=== PATIENT | male | born 1990 | race Caucasian/White ===

== ENCOUNTER 2023-05-18 13:31 | Inpatient (IN) | payer BC ==
[~2023-05-18] VITALS: Ht 172.7 cm; Wt 97.5 kg
[2023-05-18] MEDS ORDERED: METH-1164 PO (13:43)
[2023-05-18] MEDS ORDERED: OXYC-517 PO ×2 (13:43)
[2023-05-18] MEDS ORDERED: KETO60IN IM (13:43)
[2023-05-18] MEDS ORDERED: ACET-683 PO (13:43)
[2023-05-18] MEDS ORDERED: GABA-1171 PO (13:43)
[2023-05-18] MEDS ORDERED: ONDANSETRON 4MG 2ML VIAL IV ONE (14:05)
[2023-05-18] MEDS: MORPHINE 4 MG/ML 1ML VIAL IV PRN ×2 (14:35→18:10)
[2023-05-18] MEDS: NS 1,000 ML IV SCH ×2 (14:37→23:40)
[2023-05-18 14:43] LABS: BASO % 0.3 % (0.0-1.0); EOS # 0.1 10^3/uL (0.0-0.5); EOS % 0.7 % (0.0-3.0); HEMATOCRIT 39.1 % (42.0-52.0); HEMOGLOBIN 13.2 g/dl (13.5-17.5); LYMPH # 1.8 10^3/uL (1.5-5.0); LYMPH % 16.3 % (24.0-44.0); MEAN CORPUSCULAR HEMOGLOBIN 29.7 pg (27.0-33.0); MEAN CORPUSCULAR HGB CONC 33.8 g/dl (32.0-36.5); MEAN CORPUSCULAR VOLUME 87.9 fl (80.0-96.0); MONO # 0.7 10^3/uL (0.0-0.8); MONO % 6.4 % (2.0-8.0); NEUTROPHILS # 8.3 10^3/uL (1.5-8.5); NEUTROPHILS % 75.7 % (36.0-66.0); PLATELET COUNT, AUTOMATED 484 10^3/uL (150-450); RED BLOOD COUNT 4.45 10^6/uL (4.30-6.10)
[2023-05-18 14:55] LABS: INR 1.1; PROTHROMBIN TIME 13.9 SECONDS (12.5-14.5)
[2023-05-18 15:12] LABS: LIPASE 34 U/L (12-53)
[2023-05-18 15:15] LABS: ALBUMIN 3.7 G/DL (3.2-5.2); ALKALINE PHOSPHATASE 56 U/L (46-116); ALT/SGPT 40 U/L (7.0-40); AST/SGOT 10 U/L (<34); BILIRUBIN,DIRECT 0.2 MG/DL (<0.4); BILIRUBIN,TOTAL 0.6 MG/DL (0.3-1.2); BLOOD UREA NITROGEN 16 MG/DL (9-23); CARBON DIOXIDE LEVEL 26 MMOL/L (20-31); CHLORIDE LEVEL 101 MMOL/L (98-107); GLOMERULAR FILTRATION RATE > 60.0 (>60); GLUCOSE, FASTING 120 MG/DL (60-100); POTASSIUM SERUM 4.5 MMOL/L (3.5-5.1); SODIUM LEVEL 134 MMOL/L (136-145); TOTAL PROTEIN 7.7 G/DL (5.7-8.2)
[2023-05-18 15:16] LABS: RSV AMPLIFICATION NEGATIVE (NEGATIVE)
[2023-05-18] MEDS ORDERED: HOME MED LIST COMPLETE! XX SCH (16:35)
[2023-05-18] MEDS ORDERED: ONDANSETRON 4MG 2ML VIAL IV PRN (18:00)
[2023-05-18] MEDS: GABAPENTIN 100 MG CAP PO SCH (21:22)
[2023-05-18] MEDS: SENOKOT S TAB PO SCH (21:22)
[2023-05-18] MEDS: methocarbamoL 500 MG TAB PO SCH (21:22)
[2023-05-18] MEDS: oxyCODONE 5MG TAB PO PRN (23:37)
[2023-05-18] MEDS: KETOROLAC 30 MG/ML 1ML VIAL IV PRN (23:38)
[2023-05-19 06:27] LABS: HEMATOCRIT 35.9 % (42.0-52.0); HEMOGLOBIN 11.9 g/dl (13.5-17.5); MEAN CORPUSCULAR HGB CONC 33.1 g/dl (32.0-36.5); MEAN CORPUSCULAR VOLUME 90.4 fl (80.0-96.0); RED BLOOD COUNT 3.97 10^6/uL (4.30-6.10); WHITE BLOOD COUNT 8.1 10^3/uL (4.0-10.0)
[2023-05-19 06:32] LABS: PLATELET COUNT, AUTOMATED 377 10^3/uL (150-450)
[2023-05-19] MEDS: SENOKOT S TAB PO SCH ×2 (08:23→21:00)
[2023-05-19] MEDS: methocarbamoL 500 MG TAB PO SCH ×4 (08:23→21:14)
[2023-05-19] MEDS: PANTOPRAZOLE 40MG TAB (PROTONIX) PO SCH (08:23)
[2023-05-19] MEDS: GABAPENTIN 100 MG CAP PO SCH ×3 (08:23→21:14)
[2023-05-19] MEDS: NS 1,000 ML IV SCH (08:24)
[2023-05-19] MEDS: oxyCODONE 5MG TAB PO PRN (11:36)
[2023-05-19 15:30] VITALS: BP 126/81; TEMP 98.9; O2SAT 99
[2023-05-19] MEDS: KETOROLAC 30 MG/ML 1ML VIAL IV PRN (15:33)
[2023-05-19 20:00] VITALS: BP 124/68; TEMP 98.6; O2SAT 96
[2023-05-19 23:56] VITALS: BP 108/67; TEMP 98.7; O2SAT 96
[2023-05-20 03:30] VITALS: BP 112/68; TEMP 98.5; O2SAT 95
[2023-05-20] MEDS: KETOROLAC 30 MG/ML 1ML VIAL IV PRN (06:13)
[2023-05-20 07:07] LABS: HEMATOCRIT 35.5 % (42.0-52.0); HEMOGLOBIN 12.2 g/dl (13.5-17.5); MEAN CORPUSCULAR HEMOGLOBIN 30.6 pg (27.0-33.0); MEAN CORPUSCULAR HGB CONC 34.4 g/dl (32.0-36.5); PLATELET COUNT, AUTOMATED 382 10^3/uL (150-450); RED BLOOD COUNT 3.99 10^6/uL (4.30-6.10); WHITE BLOOD COUNT 10.4 10^3/uL (4.0-10.0)
[2023-05-20 08:13] VITALS: BP 137/74; TEMP 98.2; O2SAT 96
[2023-05-20] MEDS: SENOKOT S TAB PO SCH (09:00)
[2023-05-20] MEDS: methocarbamoL 500 MG TAB PO SCH (09:22)
[2023-05-20] MEDS: GABAPENTIN 100 MG CAP PO SCH (09:22)
[2023-05-20] MEDS: PANTOPRAZOLE 40MG TAB (PROTONIX) PO SCH (09:22)
[2023-05-20] MEDS: oxyCODONE 5MG TAB PO PRN (10:41)
== END 2023-05-20 11:57 | disposition home or self-care (01) | DRG 663 ==
LOC: M ED 13:31 → EDBEDREQ 16:02 → M ED INP 17:57 → ENRESERV 05-19 14:53 → M PCU 05-19 15:22
PROVIDERS: ADMIT Surgery; ATTEND Surgery
DX: S36.039A Unspecified laceration of spleen, initial encounter (principal); Z88.0 Allergy status to penicillin; Z20.822 Contact with and (suspected) exposure to COVID-19; S22.42XD Multiple fractures of ribs, left side, subsequent encounter for fracture with routine healing; S36.899D Unspecified injury of other intra-abdominal organs, subsequent encounter; Z79.899 Other long term (current) drug therapy; X58.XXXA Exposure to other specified factors, initial encounter; Y92.9 Unspecified place or not applicable

== ENCOUNTER → 2023-05-18 | Outpatient (CLI) | payer BC ==
[~2023-05-18] MED LIST: ACET-683 PO; GABA-1171 PO; GASTROGRAFIN SOLUTION 30ML As Ordered ONE; ISOVUE-370 76% 100ML VIAL As Ordered ONE; KETO60IN IM; METH-1164 PO; OXYC-517 PO
== END ==
LOC: M RAD 11:01
PROVIDERS: ATTEND Physician Assistant
DX: S22.42XA Multiple fractures of ribs, left side, initial encounter for closed fracture (principal); S36.032A Major laceration of spleen, initial encounter; K66.1 Hemoperitoneum; Y93.9 Activity, unspecified; Y92.9 Unspecified place or not applicable
CPT/HCPCS: 71046; 74177; Q9963; Q9967

== ENCOUNTER → 2023-05-23 | Outpatient (REF) | payer BC ==
[~2023-05-23] MED LIST changes: -GASTROGRAFIN SOLUTION 30ML As Ordered ONE; -ISOVUE-370 76% 100ML VIAL As Ordered ONE
[2023-05-23 14:40] LABS: BASO # 0.1 10^3/uL (0.0-0.2); BASO % 0.5 % (0.0-1.0); EOS # 0.2 10^3/uL (0.0-0.5); EOS % 2.3 % (0.0-3.0); HEMATOCRIT 36.8 % (42.0-52.0); LYMPH # 1.4 10^3/uL (1.5-5.0); MEAN CORPUSCULAR HEMOGLOBIN 29.9 pg (27.0-33.0); MEAN CORPUSCULAR HGB CONC 32.6 g/dl (32.0-36.5); MEAN CORPUSCULAR VOLUME 91.8 fl (80.0-96.0); MONO # 0.7 10^3/uL (0.0-0.8); MONO % 7.3 % (2.0-8.0); NEUTROPHILS # 7.1 10^3/uL (1.5-8.5); NEUTROPHILS % 74.4 % (36.0-66.0); PLATELET COUNT, AUTOMATED 440 10^3/uL (150-450); RED BLOOD COUNT 4.01 10^6/uL (4.30-6.10); WHITE BLOOD COUNT 9.5 10^3/uL (4.0-10.0)
[2023-05-23 14:43] LABS: ALBUMIN 3.4 G/DL (3.2-5.2); ALKALINE PHOSPHATASE 60 U/L (46-116); ALT/SGPT 54 U/L (7.0-40); AST/SGOT 27 U/L (<34); BILIRUBIN,TOTAL 0.6 MG/DL (0.3-1.2); BLOOD UREA NITROGEN 14 MG/DL (9-23); CALCIUM LEVEL 9.6 MG/DL (8.5-10.1); CARBON DIOXIDE LEVEL 31 MMOL/L (20-31); CHLORIDE LEVEL 106 MMOL/L (98-107); CREATININE FOR GFR 0.71 MG/DL (0.70-1.30); GLOMERULAR FILTRATION RATE > 60.0 (>60); GLUCOSE, FASTING 96 MG/DL (60-100); POTASSIUM SERUM 4.6 MMOL/L (3.5-5.1); SODIUM LEVEL 135 MMOL/L (136-145); TOTAL PROTEIN 7.3 G/DL (5.7-8.2)
== END ==
LOC: M SFHCADAM 09:00
PROVIDERS: ATTEND Physician Assistant
DX: S36.039D Unspecified laceration of spleen, subsequent encounter (principal)

== ENCOUNTER → 2023-07-20 | Outpatient (REF) | payer BC ==
[2023-07-20 18:21] LABS: BASO % 0.6 % (0.0-1.0); EOS # 0.1 10^3/uL (0.0-0.5); EOS % 1.4 % (0.0-3.0); HEMATOCRIT 45.6 % (42.0-52.0); HEMOGLOBIN 14.9 g/dl (13.5-17.5); LYMPH # 2.2 10^3/uL (1.5-5.0); LYMPH % 33.8 % (24.0-44.0); MEAN CORPUSCULAR HEMOGLOBIN 29.5 pg (27.0-33.0); MEAN CORPUSCULAR HGB CONC 32.7 g/dl (32.0-36.5); MEAN CORPUSCULAR VOLUME 90.3 fl (80.0-96.0); MONO # 0.6 10^3/uL (0.0-0.8); MONO % 9.3 % (2.0-8.0); NEUTROPHILS # 3.6 10^3/uL (1.5-8.5); NEUTROPHILS % 54.7 % (36.0-66.0); PLATELET COUNT, AUTOMATED 295 10^3/uL (150-450); RED BLOOD COUNT 5.05 10^6/uL (4.30-6.10); WHITE BLOOD COUNT 6.6 10^3/uL (4.0-10.0)
[2023-07-20 18:29] LABS: ALBUMIN 4.3 G/DL (3.2-5.2); ALKALINE PHOSPHATASE 64 U/L (46-116); ALT/SGPT 24 U/L (7.0-40); AST/SGOT 17 U/L (<34); BILIRUBIN,TOTAL 0.7 MG/DL (0.3-1.2); BLOOD UREA NITROGEN 12 MG/DL (9-23); CALCIUM LEVEL 9.3 MG/DL (8.5-10.1); CARBON DIOXIDE LEVEL 31 MMOL/L (20-31); CHLORIDE LEVEL 104 MMOL/L (98-107); CREATININE FOR GFR 0.81 MG/DL (0.70-1.30); GLOMERULAR FILTRATION RATE > 60.0 (>60); GLUCOSE, FASTING 83 MG/DL (60-100); POTASSIUM SERUM 4.3 MMOL/L (3.5-5.1); SODIUM LEVEL 137 MMOL/L (136-145); TOTAL PROTEIN 7.3 G/DL (5.7-8.2)
== END ==
LOC: M SFHCADAM 17:14
PROVIDERS: ATTEND Physician Assistant
DX: D62 Acute posthemorrhagic anemia (principal)